=== PATIENT | female | born 1960 | race Caucasian/White ===

== ENCOUNTER → 2016-11-22 | Outpatient (CLI) | payer OTHER ==
--- NOTE | 2016-11-22 11:50 | US ---
Right Breast Ultrasound - November 22, 2016 Indication: Superimposed nodular tissue upper right breast. Proceed with ultrasound to optimally yung acterize. Technique: The right breast was scanned with a high-resolution linear transducer by the patient support tech a nd myself]. Correlation was made with mammograms. Findings: Sonography reveals normal bands of fibroglandular tissue. No mass or architectural distorti on suspicious for malignancy. The patient support tech notes a small, tiny 2-mm cyst versus fat lobule at the 11 o'clock position 3 cm from the nipple. Impression: Normal fibroglandular tissue. No mass or lesion suspicious for malignancy. BI-RADS 2: Benign finding. Recommendation: Resume routine mammographic screening in October 2017, unless otherwise clinically i ndicated. The negative results and recommendations were discussed with the patient at time of study completion.
--- NOTE | 2016-11-22 13:47 | MA ---
Right diagnostic mammogram dated November 22, 2016 Indication: Nodular asymmetry upper central right breast. Technique: True lateral and spot-compressed MLO views of the central upper right breast. Comparison: Screening mammograms dated October 2016, August 2015, August 2014, and August 2011. Findings: The nodular asymmetry is less conspicuous on the spot-compressed MLO view and has the appe arance of dense superimposed fibroglandular tissue. No abnormality on the true lateral view. No under lying architectural distortion. Impression: Suspect dense superimposed fibroglandular tissue in the upper right breast. BI-RADS 0: Needs additional imaging evaluation. Recommendation: Proceed with right breast ultrasound today to optimally characterize.
== END ==
LOC: FIMAGING 10:30
PROVIDERS: ATTEND Obstetrics & Gynecology
DX: R92.8 Other abnormal and inconclusive findings on diagnostic imaging of breast (principal)
CPT/HCPCS: G0206

== ENCOUNTER → 2018-01-15 | Outpatient (CLI) | payer OTHER | LOC: FIMAGING 14:46 | PROVIDERS: ATTEND Internal Medicine | DX: N18.2 Chronic kidney disease, stage 2 (mild) (principal) ==

== ENCOUNTER → 2018-03-12 | Outpatient (CLI) | payer OTHER | LOC: FIMAGING 15:02 | PROVIDERS: ATTEND Family Medicine | DX: Z12.31 Encounter for screening mammogram for malignant neoplasm of breast (principal); Z80.3 Family history of malignant neoplasm of breast ==